=== PATIENT | male | born 1975 ===

== ENCOUNTER 2024-10-14 01:26 | Emergency (ER) | payer BC, SELFPAY ==
[2024-10-14 01:40] VITALS: BP 208/141
[2024-10-14 01:46] VITALS: BP 201/31
[2024-10-14 01:48] VITALS: BP 214/133
[2024-10-14 02:03] LABS: % Basophils 1.2 % (0-2); % Eosinophils 3.8 % (0-6); % Immature Granulocytes 0.5 % (0-0.5); % Lymphocytes 37.6 % (20.5-51.1); % Monocytes 10.3 % (1.7-9.3); % Neutrophils 46.6 % (42.2-75.2); Absolute Basophils 0.1 10^3/uL (0-0.2); Absolute Eosinophils 0.2 10^3/uL (0-0.7); Absolute Lymphocytes 2.3 10^3/uL (1.2-3.4); Absolute Monocytes 0.6 10^3/uL (0.1-0.6); Absolute Neutrophils 2.8 10^3/uL (1.4-6.5); Hematocrit 42.9 % (39.0-52.0); Hemoglobin 14.8 g/dL (13.0-18.0); Mean Corp Hgb Conc. 34.5 g/dL (33.0-37.0); Mean Corpuscular Hgb 31.2 pg (27.0-31.0); Mean Corpuscular Volume 90.5 fL (80.0-94.0); Mean Platelet Volume 8.7 fL (7.4-10.4); Nucleated Red Blood Cells % 0 % (-); Platelet Count 260 10^3/uL (130-400); Red Blood Cell Count 4.74 10^6/uL (4.70-6.10); Red Cell Dist. Width 12.7 % (11.5-14.5)
[2024-10-14 03:00] VITALS: BP 152/107
--- NOTE | 2024-10-14 03:37 | DOWNTIME ---
There was a [employer] Specialist Downtime on 10/14/2024 from 0200 to 10/14/2024 at 0325 . Downtime documentation of patient's care, including medication administrations, has been reconciled in the electronic record per guidelines. Refer to the
patient's paper chart under the miscellaneous tab to see printed paper medication records and downtime forms.
[2024-10-14 03:41] LABS: ALT (SGPT) 12 U/L (0-50); AST (SGOT) 23 U/L (17-59); Albumin 4.7 g/dl (3.5-5.0); Alkaline Phosphatase 49 U/L (38-126); Blood Urea Nitrogen 16 mg/dl (9-20); Calcium 9.1 mg/dl (8.4-10.2); Carbon Dioxide 25 mmol/L (22-30); Chloride 107 mmol/L (98-107); Glucose 101 mg/dl (70-99); Potassium 3.9 mmol/L (3.5-5.1); Sodium 142 mmol/L (135-145); Total Bilirubin 0.8 mg/dl (0.2-1.3); Total Protein 8.1 g/dl (6.3-8.2); Troponin I < 0.012 ng/ml; eGFR > 60.00
[2024-10-14 03:44] VITALS: BMI 22.8
[2024-10-14 04:05] VITALS: BP 148/103
--- NOTE | 2024-10-14 04:13 | ED.GENMED ---
History of Present Illness
<SABIHA Topete - Last Filed: 10/14/24 04:31>
General
Chief Complaint: Blood Pressure Problem
Source: patient
Time Seen by Provider: 10/14/24 03:30
Nursing documentation reviewed up to this point in time: agreed with
History of Present Illness
History of Present Illness:
Pt is a 49 yo M with a history of HTN who presents to the emergency department for elevated blood pressure. Pt states that on Friday he felt like his blood pressure was high while drinking coffee. He reports having a headache and right ear
ringing. Pt states that the headache is on the front right side of his head and rates it a 7/10. Pt states that he has high-pitched ringing in his right ear. Pt reports that the ringing has been present for a while. Pt states that tonight he took
either Advil or Tylenol and it relieved his headache a bit. Pt states that he went for a follow up visit to his doctor earlier today and that his blood pressure reading was high at the office. Pt denies chest pain, shortness of breath, N/V, numbness
or tingling in extremities, fever, chills. Pt currently takes carvedilol, losartan, and rosuvastatin. Pt states that he is complaint with taking his medications daily.
Review of Systems
<SABIHA Topete - Last Filed: 10/14/24 04:31>
Review of Systems
Allergies reviewed?: Yes
Constitutional: Reports no symptoms
EENT: Reports other (tinnitus )
Respiratory: Reports no symptoms
Cardiac: Reports no symptoms
ABD/GI: Reports no symptoms
Neurological: Reports headache
Phy Exam
<SABIHA Topete - Last Filed: 10/14/24 04:31>
General Physical Exam
General Presentation: well appearing and no apparent distress
General age: appears stated age
General Skin: warm
General Habitus: normal
General Mental: alert
General Hydration: appears well hydrated
ENT Exam
ENT Exam: TM's abnormal (R ear canal erythematous)
Cardiovascular Exam
Cardiovascular Exam: regular rate/rhythm
Pulmonary Exam
Pulmonary Exam: lungs clear
Course
<Sanam Bridges, [facility] - Last Filed: 10/14/24 04:31>
Orders/Labs/Results
Orders:
Orders
10/14/24 01:48
Electrocardiogram (*1) Urgent
Reason for Study: Chest Pain
EKG- Treatment ONCE
10/14/24 01:56
Complete Blood Count/With Diff Urgent
Comprehensive Metabolic Panel Urgent
Troponin I Urgent
10/14/24 03:30
CT Head W/o Iv Contrast Urgent
Comment:
Reason For Exam: headache, elevated BP
10/14/24 04:46
Amoxicillin [Amoxil] 1,000 mg PO NOW STA
Abnormal Lab Results
10/14/24
01:56
MCH 31.2 H pg
(27.0-31.0)
Monocytes % 10.3 H %
(1.7-9.3)
Glucose 101 H mg/dl
(70-99)
10/14/24 01:56
10/14/24 01:56
Vital Signs
Initial and Last Documented VS:
Initial Vital Signs
Temp Pulse Resp BP Pulse Ox
97.8 F 72 16 208/141 99
10/14/24 01:40 10/14/24 01:40 10/14/24 01:40 10/14/24 01:40 10/14/24 01:40
Last Documented Vital Signs
Temp Pulse Resp BP Pulse Ox
97.8 F 58 22 152/107 97
10/14/24 01:40 10/14/24 03:30 10/14/24 03:30 10/14/24 03:00 10/14/24 03:30
<Lary Ríos DO - Last Filed: 10/14/24 04:56>
Orders/Labs/Results
Orders:
Orders
10/14/24 01:48
Electrocardiogram (*1) Urgent
Reason for Study: Chest Pain
EKG- Treatment ONCE
10/14/24 01:56
Complete Blood Count/With Diff Urgent
Comprehensive Metabolic Panel Urgent
Troponin I Urgent
10/14/24 03:30
CT Head W/o Iv Contrast Urgent
Comment:
Reason For Exam: headache, elevated BP
10/14/24 04:46
Amoxicillin [Amoxil] 1,000 mg PO NOW STA
Abnormal Lab Results
10/14/24
01:56
MCH 31.2 H pg
(27.0-31.0)
Monocytes % 10.3 H %
(1.7-9.3)
Glucose 101 H mg/dl
(70-99)
10/14/24 01:56
10/14/24 01:56
Vital Signs
Initial and Last Documented VS:
Initial Vital Signs
Temp Pulse Resp BP Pulse Ox
97.8 F 72 16 208/141 99
10/14/24 01:40 10/14/24 01:40 10/14/24 01:40 10/14/24 01:40 10/14/24 01:40
Last Documented Vital Signs
Temp Pulse Resp BP Pulse Ox
97.8 F 58 22 152/107 97
10/14/24 01:40 10/14/24 03:30 10/14/24 03:30 10/14/24 03:00 10/14/24 03:30
<SABIHA Topete - Last Filed: 10/14/24 04:31>
*Critical Care Note
Total Time (30-74mins, 75-104mins- exclusive of procedures): Not Applicable
<Lary Ríos DO - Last Filed: 10/14/24 04:56>
*Radiology
Radiology exam reviewed: radiology read reviewed (CT of the head is unremarkable)
*Pulse Oximetry
Patient hypoxic: no
*EKG
Interpreted by ED Provider?: Yes
Interpretation: normal
Comparison EKG: no comparison EKG present
Rate: normal
Rhythm: sinus
Gibson: normal axis
Interval: normal interval
QRS Pattern: normal QRS
Ischemia: no ischemia
*Cloth Colorer Interpretation
Rate: normal
Interpretation: normal
Rhythm: sinus
ED Attending Note
<SABIHA Topete - Last Filed: 10/14/24 04:31>
-
Portions of this chart may have been created with voice recognition software.� Occasional wrong word or��sound alike� substitutions may have occurred due to the inherent limitations of voice recognition software.
<Lary Ríos DO - Last Filed: 10/14/24 04:56>
ED Attending Note
Patient seen and examined by attending physician: Yes
I performed the substantive portion of visit, reviewed & personally made and approve the management plan that is documented in note by myself or JOHANA.: Yes
ED Attending Note:
This is a 49-year-old gentleman with history of hypertension who was started on losartan 50 mg, Coreg 6.25 mg twice daily perhaps 3 to 5 months ago. He does not monitor his blood pressure on a regular basis but more recently with onset of ringing
in his ears over the past several days along with intermittent headache he has been monitoring his blood pressure and is noted that his blood pressure has been quite elevated. He did see his family doctor earlier today and blood pressure was noted
to be 170 systolic. Patient reports no change or adjustment in his medications.
He has had intermittent headache and has been taking Tylenol with last dose around 6 PM with relief of headache. He denies weakness or numbness, no dizziness, no sore throat nor fever. He does note mild rare nasal congestion but no rhinorrhea. No
photophobia.
GENERAL: Alert , in no apparent distress. 49-year-old gentleman appears his stated age, awake and alert, pleasant, appears in no acute distress.
EYE: pupils equal and reactive. Extraocular muscles intact. Discs are sharp. Anicteric
NECK: Supple, nontender, no meningismus, no significant adenopathy.
ENT: posterior pharynx has scant clear postnasal drip, oral mucosa is moist. Right TM is retracted and moderately injected superiorly. Left TM is clear. Nares have mildly boggy turbinates with scant clear rhinorrhea.
CARDIAC: Regular rate and rhythm. no murmur.
LUNGS: Clear breath sounds bilaterally, no acute respiratory distress, no wheezes/rales/rhonchi
ABDOMEN: Soft, nondistended, without focal tenderness, no r/g, no cvat. normoactive BS.
NEUROLOGICAL: Alert and oriented x3, no focal neuro deficits. Gait is ren and steady.
SKIN: Warm and dry, normal color, skin intact. No rash.
MUSCULOSKELETAL: No C/C/E. peripheral pulses are full and equal b/l. No palpable tenderness.
PSYCH: Normal and appropriate interaction.
Patient with history of hypertension presents with elevated blood pressure accompanied with headache, ear pain and tinnitus.
Overall nontoxic in appearance. Exam remarkable for otitis media on the right with eustachian tube dysfunction on the right. No serous effusion.
With markedly elevated blood pressure and complaints of headache will check CT of the head.
Labs thus far unremarkable with no evidence of endorgan damage. Negative troponin. Normal renal function.
EKG is unremarkable.
CT of the head is unremarkable.
Patient continues to appear comfortable.
Blood pressure improving without intervention.
Will treat otitis media with a course of amoxicillin and Flonase for eustachian tube dysfunction.
Continue Tylenol as needed for discomfort, headache. Currently headache free.
Recommend prompt follow-up with PCP for recheck.
We did discuss that if tinnitus persists he may require ENT evaluation.
Discharge Plan
Departure
Patient Disposition: Home (Routine Discharge)
Date of Disposition: 10/14/24
Time of Disposition: 04:47
Patient with high blood pressure during this ER visit?: No
Condition: Good
Discharge Problem:
Accelerated essential hypertension, Acute right otitis media, Acute dysfunction of right eustachian tube, Tinnitus
Instructions: Tinnitus (ringing in the ears), High Blood Pressure (DC), Ear Infections in Adults (DC)
Prescriptions:
New
amoxicillin 875 mg tablet
875 mg PO BID Qty: 14 0RF
fluticasone propionate 50 mcg/actuation spray,suspension
2 spray intranasal DAILY Qty: 16 0RF
No Action
losartan 50 mg Tablet
50 mg PO DAILY
rosuvastatin 10 mg Tablet
10 mg PO DAILY
carvedilol
6.25 mg PO BID
Referrals:
Godfrey Torre MD [Non-Admitting Privileges] - Call in 1-3 days for appt
UNKNOWN,NO INTERVIEW [Family Provider] -
Interventions
Interventions:
*Risk Screen - Suicide Last Done: 10/14/24 01:40
*General Assessment Last Done: 10/14/24 02:00
*Neglect/Abuse Screening Last Done: 10/14/24 01:40
ED- Fall Risk Assessment Last Done: 10/14/24 02:00
*ED COVID-19 Vaccine History Last Done: 10/14/24 03:44
ED- Cardiac Assessment Last Done: 10/14/24 02:00
ED- Neurological Assessment Last Done: 10/14/24 02:00
ED- Pulmonary Assessment Last Done: 10/14/24 02:00
Discharge Date and Time
Print Language: Slovak
[2024-10-14] MEDS: AMOXIL 1000 MG PO (04:59)
== END 2024-10-14 05:03 | disposition home or self-care (01) ==
LOC: EMR 01:26
PROVIDERS: EMERGENCY PHYSICIAN Emergency Medicine
DX: H66.91 Otitis media, unspecified, right ear (principal); H69.91 Unspecified Eustachian tube disorder, right ear; I10 Essential (primary) hypertension; Z79.899 Other long term (current) drug therapy
CPT/HCPCS: 99284; 70450; 80053; 84484; 85025; 93005

== ENCOUNTER 2025-05-29 12:04 | Emergency (ER) | payer BC, SELFPAY ==
[2025-05-29 12:11] VITALS: BP 115/92
[2025-05-29 12:23] LABS: Urine Character Clear (Clear)
--- NOTE | 2025-05-29 13:19 | ED.GENMED ---
History of Present Illness
<Jah Man, DO - Last Filed: 05/30/25 17:41>
General
Chief Complaint: Abdominal Pain
Source: patient and spouse
Exam Limitations: none
Time Seen by Provider: 05/29/25 13:18
Nursing documentation reviewed up to this point in time: agreed with
History of Present Illness
History of Present Illness:
Note:
CHIEF COMPLAINT(S)
Abdominal pain, difficulty breathing.
HISTORY OF PRESENT ILLNESS
The patient is a 50-year-old male who presents with abdominal pain and difficulty breathing. The pain started approximately three to four days ago, but its severity significantly increased today. The patient describes the pain as swelling or
inflammation, possibly related to the pancreas, although exact diagnosis requires further evaluation. Despite reporting difficulty breathing, the patients oxygen saturation remains at 100%. Prior to presenting to the emergency department, the
patient attended catholic and subsequently the decision was made to seek medical care. The patient reports ingesting a kombucha-like drink and some spices, which he suspects may have contributed to his symptoms. No alcohol consumption has been
reported.
ADDITIONAL HISTORY OBTAINED FROM SOURCES OTHER THAN THE PATIENT
According to family members, the patient has not eaten significantly in the past few days due to pain, but today the symptoms worsened enough to warrant medical consultation.
PAST SURGICAL HISTORY
The patient has a history of umbilical and right-sided hernia repairs.
MEDICATIONS
Amlodipine for hypertension.
Metoprolol for hypertension.
Doxazosin for hypertension.
Losartan for hypertension.
PHYSICAL EXAM
- Neurological: Extraocular muscles intact, pupils are directly reactive to light.
- Cardiovascular: Heart sounds S1 and S2 auscultated; no S3, S4, or murmurs present.
- Respiratory: Lungs are clear bilaterally; no respiratory distress observed.
- Abdominal: Abdomen soft with no rebound tenderness or guarding; minimal tenderness noted in the epigastric region.
- Skin: Scars from umbilical and incisional hernia surgeries observed.
- Extremities: No edema; normal pulses in bilateral extremities.
PROBLEM LIST
- Acute: Abdominal pain, difficulty breathing, suspected gastritis or pancreatitis.
- Chronic: Hypertension, surgical history significant for hernia repairs.
PLAN
- Conduct blood tests to investigate potential causes of symptoms.
- Perform a computed tomography (CT) scan to evaluate abdominal structures and rule out pancreatitis or other causes of acute abdominal symptoms.
- Maintain the patient on a clear fluid regimen while awaiting test results.
- Initiate intravenous fluid therapy.
DIFFERENTIAL DIAGNOSIS
The Differential Diagnosis includes, in no particular order and is not limited to:
1. Pancreatitis
2. Gastritis
3. Peptic Ulcer Disease
4. Gallstones
5. Appendicitis
6. Bowel Obstruction
7. Hernia complications
8. Gastroenteritis
9. Hepatitis
10. Renal colic
CARE-UPDATE
05/30/25 - 17:39
CT-Scan indicates no significant findings in the pelvis. Mild basilar bronchiectasis observed. Patient is stable for discharge. Arrangements made for follow-up with primary care.
Disposition:
SUMMARY OF ENCOUNTER
The patient, a 50-year-old male, presented to the emergency department with abdominal pain and difficulty breathing. Symptoms began three to four days prior but significantly worsened on the day of the visit. The patient suspected swelling or
inflammation related to the pancreas. Oxygen saturation remained at 100% despite the reported breathing difficulty. Pain potentially linked to ingestion of a kombucha-like drink and spices. No alcohol consumption reported. Initial management
included maintaining clear fluid intake and administering intravenous fluid therapy while further diagnostic tests were performed.
DISPOSITION
Discharge
PLAN
Conduct blood tests to identify the cause of abdominal pain and difficulty in breathing. Perform a CT scan focused on evaluating abdominal structures to rule out pancreatitis or other acute abdominal conditions. Maintain the patient on a clear fluid
diet and initiate intravenous fluid therapy while awaiting test results.
INDEPENDENT REVIEW OF LABS AND INTERPRETATION OF TESTS
- My independent interpretation of the CT scan is no significant findings in the pelvis, with mild basilar bronchiectasis observed.
FOLLOW-UP INSTRUCTIONS
Arrangements made for follow-up with primary care. The patient is advised to contact the office immediately to schedule a follow-up visit.
MEDICAL DECISION MAKING
- Number and Complexity of Problems Addressed: Chronic conditions affecting care (hypertension, history of hernia repairs). Differential Diagnosis includes: Pancreatitis, Gastritis, Peptic Ulcer Disease, Gallstones, Appendicitis, Bowel Obstruction,
Hernia complications, Gastroenteritis, Hepatitis, Renal colic.
- Data:
- Category 1: Blood tests and a CT scan were ordered to evaluate the patients symptoms.
- Category 2: Clinical information obtained from family members reporting nutritional intake decrease due to pain.
- Risk: Consideration of Admission/Observation: Escalation of care including admission/observation was considered given the complexity and risk of the patients presenting complaint, exam findings, and their underlying comorbidities. However,
ultimately, I feel the patient is safe for outpatient management with close follow-up. Reasoning: Work-up reassuring, does not reveal any acute life/organ threatening processes, patients symptoms well controlled upon reevaluation, reexamination is
reassuring, vitals are stable, patient agreeable with discharge, reliable for follow-up.
DIAGNOSIS
- Abdominal pain, unspecified (R10.9)
- Dyspnea, unspecified (R06.00)
- Hypertension, essential, unspecified (I10)
Course
<Jah Man, DO - Last Filed: 05/30/25 17:41>
Orders/Labs/Results
Orders:
Orders
05/29/25 12:17
Urinalysis Reflex To Culture Urgent
Date Specimen was Collected: 05/29/25
Time Specimen was Collected: 12:10
05/29/25 13:28
CT Abd/pelvis W Iv Cont Urgent
Comment:
Reason For Exam: epigastric pain
05/29/25 13:30
IV Insert/Care/Rem.- Treatment PRN
05/29/25 13:52
Complete Blood Count/With Diff Urgent
Comprehensive Metabolic Panel Urgent
D-Dimer Urgent
Lipase Urgent
05/29/25 14:12
EKG [Electrocardiogram (*1)] Urgent
Reason for Study: Shortness of Breath
EKG- Treatment ONCE
Abnormal Lab Results
05/29/25
13:52
RBC 4.09 L 10^6/uL
(4.70-6.10)
Hgb 12.8 L g/dL
(13.0-18.0)
Hct 35.8 L %
(39.0-52.0)
MCH 31.3 H pg
(27.0-31.0)
Absolute Monos (auto) 0.7 H 10^3/uL
(0.1-0.6)
Lymphocytes % 18.9 L %
(20.5-51.1)
Chloride 109 H mmol/L
(98-107)
Total Bilirubin 1.4 H mg/dl
(0.2-1.3)
05/29/25 13:52
05/29/25 13:52
Vital Signs
Initial and Last Documented VS:
Initial Vital Signs
Temp Pulse Resp BP Pulse Ox
98.3 F 72 16 115/92 100
05/29/25 12:11 05/29/25 12:11 05/29/25 12:11 05/29/25 12:11 05/29/25 12:11
Last Documented Vital Signs
Temp Pulse Resp BP Pulse Ox
98.3 F 67 13 128/86 99
05/29/25 12:11 05/29/25 16:15 05/29/25 16:15 05/29/25 16:00 05/29/25 16:15
Marcinlt;Rusty Bynum PA-C - Last Filed: 05/29/25 16:14>
Orders/Labs/Results
Orders:
Orders
05/29/25 12:17
Urinalysis Reflex To Culture Urgent
Date Specimen was Collected: 05/29/25
Time Specimen was Collected: 12:10
05/29/25 13:28
CT Abd/pelvis W Iv Cont Urgent
Comment:
Reason For Exam: epigastric pain
05/29/25 13:30
IV Insert/Care/Rem.- Treatment PRN
05/29/25 13:52
Complete Blood Count/With Diff Urgent
Comprehensive Metabolic Panel Urgent
D-Dimer Urgent
Lipase Urgent
05/29/25 14:12
EKG [Electrocardiogram (*1)] Urgent
Reason for Study: Shortness of Breath
EKG- Treatment ONCE
Abnormal Lab Results
05/29/25
13:52
RBC 4.09 L 10^6/uL
(4.70-6.10)
Hgb 12.8 L g/dL
(13.0-18.0)
Hct 35.8 L %
(39.0-52.0)
MCH 31.3 H pg
(27.0-31.0)
Absolute Monos (auto) 0.7 H 10^3/uL
(0.1-0.6)
Lymphocytes % 18.9 L %
(20.5-51.1)
Chloride 109 H mmol/L
(98-107)
Total Bilirubin 1.4 H mg/dl
(0.2-1.3)
05/29/25 13:52
05/29/25 13:52
Vital Signs
Initial and Last Documented VS:
Initial Vital Signs
Temp Pulse Resp BP Pulse Ox
98.3 F 72 16 115/92 100
05/29/25 12:11 05/29/25 12:11 05/29/25 12:11 05/29/25 12:11 05/29/25 12:11
Last Documented Vital Signs
Temp Pulse Resp BP Pulse Ox
98.3 F 67 13 128/86 99
05/29/25 12:11 05/29/25 16:15 05/29/25 16:15 05/29/25 16:00 05/29/25 16:15
<Jah Man, - Last Filed: 05/30/25 17:41>
*Pulse Oximetry
SaO2: 100
Oxygen Mode of Delivery: Room air
Patient hypoxic: no
*Critical Care Note
Total Time (30-74mins, 75-104mins- exclusive of procedures): Not Applicable
<Rusty Bynum PA-C - Last Filed: 05/29/25 16:14>
Update Note
Update Note:
4:13 PM: I assumed care of patient pending abdominal CT. CT was negative for acute finding. There is gallstones. This information was relayed to the patient. I reexamined the patient. His abdomen is benign. Recommended Tylenol for pain and
follow-up with family doctor. No indication for admission
ED Attending Note
<Jah Man, DO - Last Filed: 05/30/25 17:41>
-
Portions of this chart may have been created with voice recognition software.� Occasional wrong word or��sound alike� substitutions may have occurred due to the inherent limitations of voice recognition software.
Discharge Plan
Departure
Patient Disposition: Home (Routine Discharge)
Date of Disposition: 05/29/25
Time of Disposition: 16:13
Patient with high blood pressure during this ER visit?: No
Discharge Problem:
Abdominal pain
Instructions: Abdominal Pain
Prescriptions:
No Action
losartan 50 mg Tablet
50 mg PO DAILY
rosuvastatin 10 mg Tablet
10 mg PO DAILY
carvedilol
6.25 mg PO BID
amoxicillin 875 mg tablet
875 mg PO BID Qty: 14 0RF
fluticasone propionate 50 mcg/actuation spray,suspension
2 spray intranasal DAILY Qty: 16 0RF
Referrals:
PRIVATE,PHYSICIAN [Family Provider, Internal Medicine]
Activity Restrictions/Additional Instructions:
Please return here for worsening symptoms otherwise try Tylenol for pain. You may follow-up with your family doctor
Interventions
Interventions:
*Risk Screen - Suicide Last Done: 05/29/25 12:12
*General Assessment Last Done: 05/29/25 13:53
*Neglect/Abuse Screening Last Done: 05/29/25 12:12
*ED COVID-19 Vaccine History Last Done: 05/29/25 13:53
*Nursing Disposition Last Done: 05/29/25 16:35
HG-Xjqhcw-Ixywlibuaj Assessment Last Done: 05/29/25 13:53
Discharge Date and Time
Discharge Date/Time: 05/29/25 16:36
Print Language: Guyanese
[2025-05-29 13:49] VITALS: BP 130/89
[2025-05-29 14:01] LABS: Hematocrit 35.8 % (39.0-52.0); Hemoglobin 12.8 g/dL (13.0-18.0); Mean Corp Hgb Conc. 35.8 g/dL (33.0-37.0); Mean Corpuscular Volume 87.5 fL (80.0-94.0); Nucleated Red Blood Cells % 0 % (-); Platelet Count 264 10^3/uL (130-400); Red Cell Dist. Width 12.3 % (11.5-14.5)
[2025-05-29 14:19] LABS: ALT (SGPT) 12 U/L (0-50); AST (SGOT) 23 U/L (17-59); Albumin 4.7 g/dl (3.5-5.0); Alkaline Phosphatase 75 U/L (38-126); Blood Urea Nitrogen 16 mg/dl (9-20); Calcium 8.9 mg/dl (8.4-10.2); Carbon Dioxide 22 mmol/L (22-30); Chloride 109 mmol/L (98-107); Glucose 93 mg/dl (70-99); Lipase 79 U/L (23-300); Potassium 3.8 mmol/L (3.5-5.1); Sodium 138 mmol/L (135-145); Total Protein 8.2 g/dl (6.3-8.2); eGFR > 60.00
[2025-05-29 14:21] LABS: D-Dimer < 0.27 ug/mlFEU (0.00-0.50)
[2025-05-29 15:00] VITALS: BP 119/91
[2025-05-29 16:00] VITALS: BP 128/86
== END 2025-05-29 16:36 | disposition home or self-care (01) ==
LOC: EMR 12:04
PROVIDERS: EMERGENCY PHYSICIAN Emergency Medicine
DX: R10.13 Epigastric pain (principal); R06.00 Dyspnea, unspecified; I10 Essential (primary) hypertension; K80.20 Calculus of gallbladder without cholecystitis without obstruction; J47.9 Bronchiectasis, uncomplicated
CPT/HCPCS: 99284; 74177; 80053; 81003; 83690; 85025; 85379; 93005; Q9967